=== PATIENT | male | born 1965 | race Caucasian/White ===

== ENCOUNTER 2020-04-13 12:42 | Inpatient (IN) | payer OTHER ==
[~2020-04-13] VITALS: Ht 188 cm; Wt 106.6 kg
[2020-04-13 12:45] VITALS: BP 107/74
[2020-04-13] MEDS ORDERED: VIBRAMYCIN 100100 MG PO (13:26)
[2020-04-13] MEDS ORDERED: COZAAR 25 MG TA25 M1 PO (13:28)
[2020-04-13] MEDS ORDERED: SPIRONOLACTONE25 MG PO (13:28)
[2020-04-13] MEDS ORDERED: FAMOTIDINE20 MG PO (13:28)
[2020-04-13] MEDS ORDERED: LIPITOR10 MG PO (13:28)
[2020-04-13] MEDS ORDERED: ABILIFY20 MG PO (13:28)
[2020-04-13] MEDS ORDERED: PROSCAR 5MG TABL5 M1 PO (13:28)
[2020-04-13] MEDS ORDERED: METOPROLOL SUCC25 M1 PO (13:28)
[2020-04-13] MEDS ORDERED: VENLAFAXINE HC150 MG PO (13:29)
[2020-04-13 13:40] LABS: ABSOLUTE NEUTROPHILS 6.7 thou/uL (1.4-8.2); BASOPHILS 1.1 % (0.0-2.0); EOSINOPHILS 2.4 % (0.0-3.0); HEMATOCRIT 50.8 % (42.0-52.0); HEMOGLOBIN 17.1 gm/dL (14.0-18.0); LYMPHOCYTES 20.2 % (24.0-44.0); MCH 28.6 pg (26.0-34.0); MCHC 33.6 g/dL (28.0-37.0); MONOCYTES 9.2 % (1.0-8.0); PLATELET COUNT 268 thou/uL (150-400); POLYS 67.1 % (36.0-66.0); RBC 5.97 mil/uL (4.50-6.00); RDW 19.4 % (10.5-14.5); WBC 9.9 thou/uL (4.0-11.0)
[2020-04-13 13:48] LABS: CALCIUM 9.1 mg/dL (8.5-10.1); CREATININE 1.4 mg/dL (0.7-1.3); POTASSIUM 4.7 mmol/L (3.5-5.1)
[2020-04-13 13:54] LABS: ALBUMIN 4.3 g/dL (3.4-5.0); TOTAL BILIRUBIN 0.9 mg/dL (0.2-1.0)
[2020-04-13 14:08] LABS: ANISOCYTOSIS 1+
[2020-04-13] MEDS ORDERED: ADZENYS XR-OD15.7 MG PO (14:41)
[2020-04-13] MEDS ORDERED: TESTOSTERO200 MG/1 M IM (14:42)
[2020-04-13] MEDS ORDERED: BUMETANIDE 1 MG1 M1 PO (14:44)
[2020-04-13 15:09] VITALS: BP 123/73
[2020-04-13 15:12] VITALS: BP 126/69
[2020-04-13 16:00] VITALS: BP 117/66
[2020-04-13 20:00] VITALS: BP 110/65
--- NOTE | 2020-04-14 01:30 | NUR ---
ASSESSED AT START OF SHIFT 1900. PT ARRIVED FROM ER DURING THE DAY. ADMISSION DONE AND CHARTED BY DAY NURSE. IV INTACT AND FLUIDS STARTED. DR UMANA STOPED BY TO SEE PT. ABX GIVEN. PT UP TO BATHROOM WITH CANE FALL EDUCATION PROVIDED. OXYCODONE GIVEN FOR PAIN. LUMBAR WOUND PICTURE TAKEN AND CULTURE SENT TO LAB. MANSOOR LIGHT AT REACH. PT STATED WEARS 5L OF O2 AT NIGHT RT INFORMED. WILL CONT TO MONITOR.
[2020-04-14 04:02] VITALS: BP 119/75
[2020-04-14 05:28] LABS: ABSOLUTE NEUTROPHILS 5.7 thou/uL (1.4-8.2); BASOPHILS 1.4 % (0.0-2.0); EOSINOPHILS 2.9 % (0.0-3.0); HEMATOCRIT 47.8 % (42.0-52.0); HEMOGLOBIN 15.8 gm/dL (14.0-18.0); LYMPHOCYTES 23.5 % (24.0-44.0); MCH 28.4 pg (26.0-34.0); MCHC 33.1 g/dL (28.0-37.0); MCV 85.9 fL (80.0-100.0); MONOCYTES 9.1 % (1.0-8.0); PLATELET COUNT 242 thou/uL (150-400); POLYS 63.1 % (36.0-66.0); RBC 5.57 mil/uL (4.50-6.00); RDW 19.5 % (10.5-14.5)
[2020-04-14 05:47] LABS: CALCIUM 8.2 mg/dL (8.5-10.1); CREATININE 1.5 mg/dL (0.7-1.3); POTASSIUM 4.3 mmol/L (3.5-5.1)
[2020-04-14 07:03] VITALS: BP 137/81
[2020-04-14 15:20] VITALS: BP 130/87
--- NOTE | 2020-04-14 17:10 | NUR ---
Assumed care of pt. at 0700. Pt. was calm and cooperative. Pt. did not complain of pain during the day shift. He was seen by both Dr. Cary and Dr. Sanders. Antibiotics given as well as IV fluids.
[2020-04-14 19:52] VITALS: BP 126/76
--- NOTE | 2020-04-15 00:20 | NUR ---
ASSESSED AT START OF SHIFT 1900. PT DENIES PAIN ON ASSESSMENT IV INTACT WITH IVF. PT UP AD THOR TO THE BATHROOM HAD A SHOWER THIS SHIFT. ON 5L OF O2 AT HS. NEW ORDERS FOR MELANTONIN PLACED. PT SLEPT THE REST OF THE SHIFT WILL CONT TO MONITOR.
[2020-04-15 05:21] VITALS: BP 134/80
[2020-04-15 06:55] VITALS: BP 126/77
--- NOTE | 2020-04-15 12:24 | NUR ---
PT CARE ASSUMED AT 0700. A&Ox4. PAIN CONTROLLED WELL WITH PAIN MEDICATION ON BOARD. AEROBIC RESULTS IN. MD INFORMED NO ORDERS GIVEN. IV PATENT WITH NO REDNESS OR EDEMA, FLUIDS INFUSING. INCISSION CITE ON BACK SHOWS MINIMAL REDNESS WITH NO EDEMA. BLOODCULTURE NO GROWTH TODAY. WILL CONTINUE TO MONITOR.
[2020-04-15 15:45] VITALS: BP 136/90
[2020-04-15 18:51] VITALS: BP 130/78
--- NOTE | 2020-04-16 03:39 | NUR ---
ASSESSMENT COMPLETED. PT IS UP AD THOR IN ROOM AND UP IN THE RAMIRE[place] WAYS. ORAL PAIN MEDS GIVEN X1 SO FAR FOR LOWER BACK PAIN. THE INCISION TO HIS BACK LOOKS OKAY, JUST TENDER AND SLIGHTLY RED. STABLE AT NOC @ ON . PT IS AFEBRILE. NO FURTHER CONCERNS.
[2020-04-16 07:00] VITALS: BP 146/89
[2020-04-16 08:36] LABS: HEMATOCRIT 49.1 % (42.0-52.0); HEMOGLOBIN 16.2 gm/dL (14.0-18.0); MCH 28.4 pg (26.0-34.0); MCHC 33.1 g/dL (28.0-37.0); MCV 85.8 fL (80.0-100.0); RBC 5.72 mil/uL (4.50-6.00); RDW 19.6 % (10.5-14.5); WBC 8.4 thou/uL (4.0-11.0)
[2020-04-16 08:49] LABS: CALCIUM 8.3 mg/dL (8.5-10.1); CREATININE 1.2 mg/dL (0.7-1.3); MAGNESIUM 2.2 mg/dL (1.8-2.4); POTASSIUM 4.9 mmol/L (3.5-5.1)
--- NOTE | 2020-04-16 12:41 | NUR ---
PT CARE ASSUMED AT 0700. A&Ox4. PT WALKING THE HALLS. PAIN CONTROLLED WELL WITH PAIN MEDICATION ON BOARD. INCISION SITE ON BACK WITH MINIMAL REDNESS, NO SWELLING. IV PATENT WITH NO REDNESS OR EDEMA, FLUIDS INFUSING. HOME MED BROUGHT TO PHARMACY, COUNTED, CONSENT ON CHART, IN IV BIN. BUMEFANIDE RETIMED TO HOME REGIMENT. CALL LIGHT IN REACH. DAILY WEIGHT. WILL CONTINUE TO MONITOR.
[2020-04-16 15:36] VITALS: BP 138/83
[2020-04-16 20:23] VITALS: BP 142/85
[2020-04-17 01:09] LABS: URINE BILIRUBIN NEGATIVE (Negative); URINE BLOOD NEGATIVE (Negative); URINE CLARITY CLEAR; URINE COLOR YELLOW; URINE GLUCOSE-RANDOM* NEGATIVE (Negative); URINE KETONES NEGATIVE (Negative); URINE LEUKOCYTES-REFLEX NEGATIVE (Negative); URINE NITRITE-REFLEX NEGATIVE (Negative); URINE PROTEIN (DIPSTICK) NEGATIVE (Negative); URINE SPECIFIC GRAVITY 1.015 (1.005-1.035); URINE UROBILINOGEN 0.2 E.U./dl (0.2-1.0)
--- NOTE | 2020-04-17 01:20 | NUR ---
Assumed care on 04/16/20 @ 19:30, in bed Awake alert and oriented x 4. Reports pain as 5/10, declines Oxycodone for pain. IV antibiotics provided @ 2200, tolerated well. Urine collected and submitted to lab for UA. NPO at midnight. Water cup emptied and placed in bathroom. Education provided regarding NPO status to prepare for surgery. O2 via NC @ 5L. Will continue to monitor as per patient protocol for safety and comfort.
[2020-04-17 05:08] LABS: HEMATOCRIT 49.6 % (42.0-52.0); HEMOGLOBIN 16.4 gm/dL (14.0-18.0); MCH 28.4 pg (26.0-34.0); RBC 5.77 mil/uL (4.50-6.00); RDW 19.5 % (10.5-14.5); WBC 9.7 thou/uL (4.0-11.0)
[2020-04-17 05:23] LABS: CALCIUM 8.4 mg/dL (8.5-10.1); MAGNESIUM 2.2 mg/dL (1.8-2.4); POTASSIUM 4.5 mmol/L (3.5-5.1)
[2020-04-17 08:32] VITALS: BP 120/70
--- NOTE | 2020-04-17 09:32 | NUR ---
ASSESSMENT: CM REVIEWED CHART AND SPOKE WITH PATIENT. PT IS ALERT AND ORIENTED X4. PT WAS ADMITTED DUE TO POST LUMBAR AREA WOUND INFECTION AND IS CURRENTLY ON IV ANBX. PT REPORTS LIVING IN A HOUSE WITH HIS AND SON. PT REPORTS NO STEPS TO ENTER THE HOME BUT ABOUT 14 STEPS WITH HANDRAILS TO HIS BEDROOM. PT REPORTS USING A CANE FOR AMBULATION AND ALSO REPORTS HAVING A SHOWER CHAIR. PT REPORTS THAT HE HAS HAD HH IN THE PAST BUT UNSURE THE AGENCY. PT REPORTS THAT HE WEARS OXYGEN AT BEDTIME ONLY AND REPORTS BEING ON 5L AT BEDTIME SUPPLIED THROUGH MED ASSIST HE STATES. CM DISCUSSED ROLE AND POSSIBLE NEED OF HH. PT REPORTS IF HE NEEDS HH HE HAS NO PREFERENCE OF AGENCY. CM SENT REFERRAL TO [facility] INCASE PT IS TO NEED HH AT DISCHARGE. ORTHO IS ALSO FOLLOWING PATIENT TO DETERMINE IF THERE IS ANY FURTHER SURGICAL PLANS. CM WILL CONTINUE TO FOLLOW TO ASSIST NEEDED.
[2020-04-17 09:46] VITALS: BP 120/70
[2020-04-17 16:00] VITALS: BP 139/72
--- NOTE | 2020-04-17 17:50 | NUR ---
ASSUMED CARE OF PATIENT AT SHIFT CHANGE. ASSESSMENT CHARTED. MEDS GIVEN PER MAR. VSS. PATIENT IS A&OX4 AND HAS CHRONIC PAIN VOICED. PRN PAIN MEDS ADMINISTERED ORDERED. PATIENT WAS NPO AWAITING DECISION FOR SURGERY; BACK ON A REGULAR DIET. PATIENT WILL NOT GET SURGERY. PATIENT IS UP INDEPENDENTLY; IV ABX INFUSED PER ORDER W NO ISSUES. PRN SLEEP MED ORDERED. VOICES NO OTHER NEEDS. WILL CONTINUE TO MONITOR
[2020-04-17 18:57] VITALS: BP 138/70
--- NOTE | 2020-04-18 02:55 | NUR ---
ASSUMED PT CARE AT 1900.PT C/O PAIN ON HIS R HIP,MANAGED WITH MED.PT UP ADLIB IN THE ROOM. PT CONT ON HIS IV ABX.PT ON 5L/NC AT HS.PT RESTING ON HIS BED AT THIS TIME.PT ABLE TO MAKE HIS NEEDS KNOWN.CALL LIGHT WITHIN REACH.
[2020-04-18 03:50] VITALS: BP 110/72
[2020-04-18 07:55] VITALS: BP 128/83
[2020-04-18] MEDS ORDERED: OXYCODONE HCL10 MG PO ×2 (13:17→13:20)
[2020-04-18] MEDS ORDERED: CEFAZOLIN2 GM/100 M IV (13:18)
[2020-04-18 13:33] VITALS: BP 128/83
--- NOTE | 2020-04-18 15:16 | NUR ---
ON-GOING ASSESSMENT: [facility] REVIEWED CHART AND SPOKE WITH BEDSIDE RN WHO NOTIFIED CM THAT PT IS NEEDING HOME IV ANBX CEFAZOLIN 2 GM Q 8HRS. PT IS TO HAVE HIS MIDLINE PLACED TODAY. PT REPORTS NO PREFERENCE OF INFUSION COMPANY. [facility] REACHED OUT TO [facility] IN ATTEMPTS TO GET THIS ARRANGED FOR TODAY. [facility] STATING THAT THEY STILL HAVE TO RUN PATIENTS BENEFITS FOR THE ANBX AND WILL GET BACK WITH CM BUT THEN WOULD LIKELY NEED 6 HRS FOR DELIVERY. PATIENT LIVES IN [place] SO LIKELY CANNOT BE ARRANGED FOR THIS EVENING. [facility] STATING THEY ARE RUNNING BENEFITS AND ONCE THEY GET A COST IF PT IS AGREEABLE THEY CAN COME DO THE BEDSIDE EDUCATION/TEACHING FIRST THING IN THE AM AND PLAN TO GIVE PATIENT HIS 2PM DOSE AT HOME. [facility] REVIEWED THIS WITH PATIENT AND STILL AWAITING INSURANCE COVERAGE COST FOR HOME INFUSION AT THIS TIME. [facility] NOTIFIED BEDSIDE RN AND ATTENDING. [facility] SPOKE WITH [facility] WHO REPORTS THAT SINCE PT IS NEEDING HOME IV INFUSION THEY DO NOT FEEL THEY HAVE THE STAFFING TO ACCEPT HIM. PT HAS NO HH PREFERENCE SO [facility] CONTACTED [facility] AND SPOKE WITH [facility] WHO REPORTS THEY CAN ACCEPT PATIENT AND ARE PREPARING FOR LIKELY DISCHARGE TOMORROW.
[2020-04-18 16:55] VITALS: BP 126/66
--- NOTE | 2020-04-18 18:42 | NUR ---
Assumed care of pt. at 0700. Pt. was calm and cooperative. Pt. was ready for discharge but needed to receive midline for at home antibiotics. was not able to service him in [place] so he is staying another night.
--- NOTE | 2020-04-18 19:36 | NUR ---
VAT CONSULTED FOR A ML PLACED FOR 1 WEEK OF IV ABX.
[2020-04-18 20:00] VITALS: BP 126/74
--- NOTE | 2020-04-19 03:19 | NUR ---
PT ALERT AND PLEASANT.PT LYLE APPRECIATIVE OF HIS CARE.C/O PAIN ON HIS BACK,MANAGED WITH MED.PT UP ADLIB IN HIS ROOM.PT LOOKING FORWARD TO BE DC'D IN THE AM.CALL LIGHT WITHIN REACH.
[2020-04-19 04:30] VITALS: BP 123/75
[2020-04-19 07:00] VITALS: BP 118/69
[2020-04-19 10:04] VITALS: BP 128/83
--- NOTE | 2020-04-19 10:52 | NUR ---
ON-GOING ASSESSMENT: CM REVIEWED CHART. PT HAD HIS MIDLINE PLACED FOR HOME IV ANBX. FREDO ARDON FROM [facility] CAME AND DID BEDSIDE EDUCATION WITH PATIENT. PT FEELS COMFORTABLE WITH DISCHARGING HOME WITH IV ANBX. CM SPOKE WITH [facility] AND HE IS 100 PERCENT COVERED FOR HOME INFUSION/SUPPLIES. CM ALSO SPOKE WITH ALDAIR AT [facility] [place], [place] AND NOTIFIED OF PATIENTS DISCHARGE TODAY. THEY CAN ACCEPT PT AND HAVE HIM ON FOR THE START OF CARE TOMORROW BUT WILL HAVE A RN CALL HIM THIS AFTERNOON TO MAKE SURE THINGS WENT OK WITH ANTIBIOTIC. PT REPORTS THAT HIS IS COMING TO PICK HIM UP. PT REPORTS NO FURTHER NEEDS FROM CM PRIOR TO DISCHARGE. CM FAXED DISCHARGE PAPERWORK TO [facility] FAX:[phone]. CASE CLOSED.
[2020-04-19 10:56] VITALS: BP 128/83
[2020-04-19 11:26] VITALS: BP 128/83
--- NOTE | 2020-04-19 13:00 | NUR ---
DISCHARGE PAPERS REVIEWED WITH PATIENT. SIGNED AND COPY IN CHART. ALL BELONGINGS PACKED AND SENT WITH PATIENT INCLUDING HOME MEDS.IV ACSESS DCD EXCEPT FOR MIDLINE PATIENT TO GET IV ABT'S AT HOME WILL SEE DR UMANA IN HIS OFFICE IN A WEEK FOR IV CONTINUING OR PO ABT. PT W/O PAIN OR RESP DISTRESS AT DC.
== END 2020-04-19 12:04 | disposition home health service (06) | DRG 862 ==
LOC: ER 12:42 → 4S 14:22 → EROBS 14:22 → 4S 15:49
PROVIDERS: Physician Assistant; Specialist; ADMIT Internal Medicine; ATTEND Internal Medicine
PROC: 05HY33Z Insertion of Infusion Device into Upper Vein, Percutaneous Approach (ICD-10-PCS; principal; 2020-04-18)
DX: T81.49XA Infection following a procedure, other surgical site, initial encounter (principal); N17.0 Acute kidney failure with tubular necrosis; I50.9 Heart failure, unspecified; M48.00 Spinal stenosis, site unspecified; Z20.828 Contact with and (suspected) exposure to other viral communicable diseases; Y83.8 Other surgical procedures as the cause of abnormal reaction of the patient, or of later complication, without mention of misadventure at the time of the procedure; F32.9 Major depressive disorder, single episode, unspecified; N40.0 Benign prostatic hyperplasia without lower urinary tract symptoms; E78.5 Hyperlipidemia, unspecified; G89.4 Chronic pain syndrome; Z95.0 Presence of cardiac pacemaker; Y92.89 Other specified places as the place of occurrence of the external cause; I11.0 Hypertensive heart disease with heart failure; Z79.899 Other long term (current) drug therapy
CPT/HCPCS: 10102; 27000

== ENCOUNTER → 2020-04-13 | Outpatient (CLI) | payer OTHER ==
[~2020-04-13] MED LIST: ABILIFY20 MG PO; ADZENYS XR-OD15.7 MG PO; BUMETANIDE 1 MG1 M1 PO; COZAAR 25 MG TA25 M1 PO; FAMOTIDINE20 MG PO; LIPITOR10 MG PO; METOPROLOL SUCC25 M1 PO; PROSCAR 5MG TABL5 M1 PO; SPIRONOLACTONE25 MG PO; TESTOSTERO200 MG/1 M IM; VENLAFAXINE HC150 MG PO; VIBRAMYCIN 100100 MG PO
== END ==
LOC: RAD 11:59
DX: T81.49XA Infection following a procedure, other surgical site, initial encounter (principal); M79.89 Other specified soft tissue disorders; B99.9 Unspecified infectious disease